=== PATIENT | male | born 1950 | race Caucasian/White ===

== ENCOUNTER → 2017-04-23 | Outpatient (CLI) | payer MEDICARE ==
[~2017-04-23] MED LIST: ASPIRIN 81M81 MG/TA2 PO; PROVENTIL0.09 MG/A1 IH; RT ADVAIR 228 DISKUS IH; RT SPIRIVA18 MCG IH; ZIAC 2.5/6.25MG1 TAB PO
== END ==
LOC: COL.VAS 08:57
DX: R06.02 Shortness of breath (principal); Z87.891 Personal history of nicotine dependence

== ENCOUNTER → 2017-04-24 | Outpatient (CLI) | payer MEDICARE, OTHER | LOC: COL.PUL 12:39 | DX: R06.02 Shortness of breath (principal) ==

== ENCOUNTER 2018-12-25 21:59 | Observation (INO) | payer MEDICARE, OTHER ==
[~2018-12-25] VITALS: Ht 175.3 cm; Wt 74.8 kg
[2018-12-25 23:27] LABS: BASO # 0.1 (0.0-0.2); BASO % 0.8 % (0.0-2.0); EOS # 1.8 (0.0-0.7); EOS % 14.9 % (0-4.0); GRAN # 5.2 (1.4-6.5); GRAN % 43.8 % (42.2-75.2); HEMATOCRIT 39.6 % (42.0-52.0); HEMOGLOBIN 12.7 g/dl (13.5-18.0); LYMPH # 3.8 (1.2-3.4); LYMPH % 31.5 % (20.0-51.0); MEAN CELL VOLUME 90 fl (80.0-100.0); MEAN CORPUSCULAR HEMOGLOBIN 29 pg (27.0-31.0); MEAN CORPUSCULAR HGB CONC 32 g/dl (33.0-37.0); MEAN PLATELET VOLUME 12.4 fl (7.4-10.4); MONO % 8.6 % (1.7-9.3); PLATELET COUNT 169 K/mm3 (130-400); RED BLOOD COUNT 4.41 M/mm3 (4.20-5.60); REDCELL DISTRIBUTION WIDTH-CV 13.9 % (11.5-14.5)
[2018-12-25 23:40] LABS: ALANINE AMINOTRANSFERASE 12 U/L (21-72); ALKALINE PHOSPHATASE 65 U/L (50-136); ANION GAP 10 mmol/L (7-16); AST,SGOT 22 U/L (15-37); BILIRUBIN,TOTAL 0.4 mg/dL (0.0-1.0); BLOOD UREA NITROGEN 29 mg/dL (9-20); C-REACTIVE PROTEIN < 0.5 mg/dL (0.0-0.9); CARBON DIOXIDE 25 mmol/L (22-30); CHLORIDE 105 mmol/L (98-107); CREATININE, serum 3.03 (0.66-1.25); GLUCOSE 104 mg/dL (74-106); POTASSIUM 4.1 mmol/L (3.4-5.0); SODIUM 140 mmol/L (137-145); TOTAL PROTEIN 7.4 gm/dL (6.4-8.2)
[2018-12-25 23:53] LABS: ERYTHROCYTE SEDIMENTATION RATE 4 mm/hr (0-30)
[2018-12-26] MEDS ORDERED: COZAAR100 MG PO (00:15)
[2018-12-26] MEDS ORDERED: TRELEGY ELLIPT1 EACH IH (00:32)
[2018-12-26] MEDS ORDERED: NORVASC 10MG10 MG PO (00:32)
[2018-12-26 04:16] VITALS: BP 118/70; PULSE 72; TEMP 98.4
[2018-12-26 07:31] VITALS: BP 120/83; PULSE 72; TEMP 97.6
[2018-12-26 08:16] LABS: CHOLESTEROL RISK RATIO 5.7
--- NOTE | 2018-12-26 10:04 | NUR ---
Pt awake and alert upon entry, no C/O pain at this time, no report of vision problems currently, shift assessments complete, left Pt call light in reach, bed in lowest position.
[2018-12-26 11:52] VITALS: BP 123/73; PULSE 74; TEMP 97.9
[2018-12-26 13:16] LABS: BASO % 0.3 % (0.0-2.0); GRAN # 8.2 (1.4-6.5); GRAN % 81.1 % (42.2-75.2); HEMATOCRIT 39.8 % (42.0-52.0); HEMOGLOBIN 12.8 g/dl (13.5-18.0); LYMPH # 1.5 (1.2-3.4); LYMPH % 15.2 % (20.0-51.0); MEAN CELL VOLUME 90 fl (80.0-100.0); MEAN CORPUSCULAR HEMOGLOBIN 29 pg (27.0-31.0); MEAN CORPUSCULAR HGB CONC 32 g/dl (33.0-37.0); MEAN PLATELET VOLUME 13.3 fl (7.4-10.4); MONO # 0.3 (0.1-0.6); MONO % 2.9 % (1.7-9.3); PLATELET COUNT 171 K/mm3 (130-400); RED BLOOD COUNT 4.43 M/mm3 (4.20-5.60); REDCELL DISTRIBUTION WIDTH-CV 13.9 % (11.5-14.5)
[2018-12-26 13:30] LABS: CALCIUM 8.9 mg/dL (8.4-10.2); CREATININE, serum 2.74 (0.66-1.25); POTASSIUM 4.4 mmol/L (3.4-5.0)
--- NOTE | 2018-12-26 13:30 | NUR ---
LIGIA attended clinical rounds. The hospitalist plans to consult a vascular surgeon in [place] to get recommendations. The patient may need to be transferred. LIGIA then followed up with the patient and patient's , [place], to discuss discharge plan. The patient lives in [place] with his . He reports independence with ADLs and does not have any DME. The patient's PCP is Dr. Ava Saravia and he receives his medications at the [facility]. He reports no difficulties obtaining his meds. The patient does not have advanced directives, but he was interested in obtaining a form for DPOA-[facility]. LIGIA provided. The patient plans to return home with his upon discharge. No additional needs at this time.
[2018-12-26 16:27] VITALS: BP 121/72; PULSE 74; TEMP 97.9
--- NOTE | 2018-12-26 18:57 | NUR ---
Pt has been resting today after returning from his MRI this AM, no C/O pain, or vision loss during the day, VS have remained stable.
[2018-12-26 19:26] VITALS: BP 114/68; PULSE 78; TEMP 97.9
[2018-12-26 23:28] VITALS: BP 115/69; PULSE 71; TEMP 97.7
[2018-12-27 03:25] VITALS: BP 115/72; PULSE 71; TEMP 97.7
[2018-12-27 07:30] VITALS: BP 116/86; PULSE 68; TEMP 97.6
--- NOTE | 2018-12-27 07:50 | NUR ---
Received report from JIA Storm.
[2018-12-27 07:51] LABS: CALCIUM 8.6 mg/dL (8.4-10.2); CREATININE, serum 2.58 (0.66-1.25); POTASSIUM 4.2 mmol/L (3.4-5.0)
--- NOTE | 2018-12-27 09:35 | NUR ---
Pt awake and alert upon entry, no C/O pain, vision loss, shift assessments complete, left pt call light in reach, bed in lowest position.
--- NOTE | 2018-12-27 10:54 | NUR ---
Patients was present. He was going to have to make some eating habit chabges and I provided encouragement, spiritual care, and prayed with them.
--- NOTE | 2018-12-27 11:30 | NUR ---
Pt discharged to home, escorted to entrance by CONTINGENTS SUPERVISOR, left via private auto with spouse.
== END 2018-12-27 11:30 | disposition home or self-care (01) ==
LOC: COL.ER 21:59 → MEDICAL 12-26 00:47
PROVIDERS: Family Medicine; Nurse Practitioner Family; ADMIT Family Medicine
DX: G45.3 Amaurosis fugax (principal); D72.829 Elevated white blood cell count, unspecified; D64.9 Anemia, unspecified; J44.9 Chronic obstructive pulmonary disease, unspecified; I10 Essential (primary) hypertension; Z79.51 Long term (current) use of inhaled steroids; Z87.891 Personal history of nicotine dependence; Z80.0 Family history of malignant neoplasm of digestive organs; Z82.49 Family history of ischemic heart disease and other diseases of the circulatory system
CPT/HCPCS: 99223-AI; G0378; J1650; J7030; J7512

== ENCOUNTER → 2019-01-23 | Outpatient (CLI) | payer MEDICARE, OTHER ==
[~2019-01-23] MED LIST changes: +COZAAR100 MG PO; +NORVASC 10MG10 MG PO; +TRELEGY ELLIPT1 EACH IH
== END ==
LOC: COL.VAS 07:36
DX: I70.1 Atherosclerosis of renal artery (principal); N26.1 Atrophy of kidney (terminal)

== ENCOUNTER → 2019-02-09 | Outpatient (CLI) | payer MEDICARE, OTHER | LOC: COL.VAS 09:00 | DX: I65.23 Occlusion and stenosis of bilateral carotid arteries (principal); I77.9 Disorder of arteries and arterioles, unspecified; I74.3 Embolism and thrombosis of arteries of the lower extremities ==

== ENCOUNTER → 2020-10-03 | Outpatient (CLI) | payer MEDICARE, OTHER ==
[~2020-10-03] MED LIST changes: +BACTRIM DS 8001 TAB PO; +BUMEX 1MG TA1 MG/TA1 PO; +CEPHALEXIN500 M1 PO; +COLACE 100100 MG/CAP PO; +COREG 3.123.125 MG/T PO; +COREG 6.256.25 MG/TA PO; +DULCOLAX TAB5 MG PO; +FLOMAX 0.40.4 MG/CAP PO; +LIPITOR 80MG80 MG PO; +NITROSTAT0.4 MG/TAB SL; +NORCO 325 MG-51 TAB PO; +NORVASC 5MG5 MG/TAB PO; +NORVASC2.5 MG PO; +PLAVIX 75MG TAB75 MG PO; +ZYRTEC 10MG10 MG PO
== END ==
LOC: COL.VAS 09-30 13:15
DX: N18.4 Chronic kidney disease, stage 4 (severe) (principal)

== ENCOUNTER 2020-10-07 05:12 | Day surgery (SDC) | payer MEDICARE, OTHER ==
[~2020-10-07] VITALS: Ht 175.3 cm; Wt 61.3 kg
[~2020-10-07 05:12] MED LIST changes: -BACTRIM DS 8001 TAB PO
[2020-10-07 05:45] VITALS: BP 151/87; PULSE 65; TEMP 98.5
[2020-10-07 06:58] LABS: CALCIUM 9.1 mg/dL (8.4-10.2); CREATININE, serum 2.88 (0.66-1.25); POTASSIUM 3.3 mmol/L (3.4-5.0)
[2020-10-07 10:21] VITALS: BP 138/70; PULSE 67
[2020-10-07] MEDS ORDERED: NORCO 325 MG-51 TAB PO (10:21)
[2020-10-07] MEDS ORDERED: BACTRIM DS 8001 TAB PO (10:21)
--- NOTE | 2020-10-07 10:21 | NUR ---
Patient returns to room 7 per cart from surgery accompanied by Fly NOYOLA and Claudia RN. Patient is awake and alert. Temp 97.9 and room air sats 97%. IV fluids infusing and site is free of redness. Right foot elevated on pillow and post op shoe in place. Siderails up x2 and call light in reach. Bulky avtar wrap dressing clean and dry. Spouse in room. Dr. Wagoner in room and talks with patient and spouse. All questions answered.
[2020-10-07 10:36] VITALS: BP 140/84; PULSE 65
--- NOTE | 2020-10-07 10:36 | NUR ---
Resting with eyes closed. Dressing clean and dry.
[2020-10-07 10:51] VITALS: BP 146/75; PULSE 62
--- NOTE | 2020-10-07 10:51 | NUR ---
Room air sats 96%. States that the right foot remains numb due to nerve block pre operatively. Post op shoe in place.
[2020-10-07 11:06] VITALS: BP 155/76; PULSE 62
--- NOTE | 2020-10-07 11:06 | NUR ---
Eating ice cream and drinking water. Denies nausea or pain.
[2020-10-07 11:21] VITALS: BP 151/80; PULSE 67
--- NOTE | 2020-10-07 11:21 | NUR ---
Tolerated snack and water. States he is ready to go home.
--- NOTE | 2020-10-07 11:35 | NUR ---
IV discontinued and site is free of redness or swelling. Assisted patient with dressing. Bulky avtar wrap dressing clean and dry on the right foot. Post op shoe maintained. States that the foot remains numb.
--- NOTE | 2020-10-07 11:48 | NUR ---
Dismissal instructions given and both patient and spouse verbalize understanding of these. 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
--- NOTE | 2020-10-07 11:53 | NUR ---
Patient dismissed to home driven by spouse and taken to the front door per wheelchair and assisted into vehicle by this RN with all instructions in hand.
== END 2020-10-07 11:53 | disposition home or self-care (01) ==
LOC: SDCO 05:12
PROVIDERS: Registered Nurse
DX: I96 Gangrene, not elsewhere classified (principal); I25.10 Atherosclerotic heart disease of native coronary artery without angina pectoris; I10 Essential (primary) hypertension; J44.9 Chronic obstructive pulmonary disease, unspecified; F32.9 Major depressive disorder, single episode, unspecified; F17.210 Nicotine dependence, cigarettes, uncomplicated; Z80.9 Family history of malignant neoplasm, unspecified
CPT/HCPCS: J0690; J2704; J2795; J7120

== ENCOUNTER 2021-11-16 07:53 | Outpatient (CLI) | payer MEDICARE, OTHER ==
[~2021-11-16] VITALS: Ht 175.4 cm; Wt 75.0 kg
[~2021-11-16 07:53] MED LIST changes: +BACTRIM DS 8001 TAB PO
[2021-11-16] MEDS ORDERED: COZAAR 50MG50 MG/TAB PO (08:19)
[2021-11-16] MEDS ORDERED: FLOMAX 0.40.4 MG/CAP PO (08:20)
[2021-11-16] MEDS ORDERED: COREG 6.256.25 MG/TA PO (08:22)
[2021-11-16] MEDS ORDERED: TRELEGY ELLIPT1 EACH IH (08:26)
[2021-11-16 08:41] VITALS: BP 136/72; PULSE 59; TEMP 97.7
[2021-11-16] MEDS ORDERED: NITROSTAT0.4 MG/TAB SL (09:29)
[2021-11-16 10:24] VITALS: BP 132/80; PULSE 66
--- NOTE | 2021-11-16 10:26 | NUR ---
Pt is [place] therefore, Discharge education given to pt and his , they verbalize understanding.
== END 2021-11-16 10:20 | disposition home or self-care (01) ==
LOC: COL.CAR 07:53 → HEART 08:00 → COL.CAR 10:20
DX: I63.9 Cerebral infarction, unspecified (principal)
CPT/HCPCS: 27886; C1764